=== PATIENT | female | born 1970 | race Caucasian/White ===

== ENCOUNTER → 2017-09-17 10:10 | Outpatient (CLI) | payer OTHER, SELFPAY ==
[2017-09-17 10:35] LABS: Adenovirus F 40/41, stool Not Detected (NotDetected); Astrovirus Not Detected (NotDetected); Campylobacter Not Detected (NotDetected); Clostridium Difficile A/B, PCR Not Detected (NotDetected); Cryptosporidium Not Detected (NotDetected); Cyclospora Cayetanesis Not Detected (NotDetected); Entamoeba histolytica Not Detected (NotDetected); Enteroaggregative E coli Not Detected (NotDetected); Enteropathogenic E coli Not Detected (NotDetected); Enterotoxigenic E coli Not Detected (NotDetected); Giardia lamblia Not Detected (NotDetected); Norovirus Not Detected (NotDetected); Plesimonas Shigalloides, PCR Not Detected (NotDetected); Rotavirus A Not Detected (NotDetected); Salmonella, PCR Not Detected (NotDetected); Sapovirus Not Detected (NotDetected); Shiga-like toxin E coli Not Detected (NotDetected); Shigella Enterovasive E coli Not Detected (NotDetected); Vibrio Cholerae Not Detected (NotDetected); Vibrio, PCR Not Detected (NotDetected); Yersinia Entercolitica, PCR Not Detected (NotDetected)
[2017-09-17 13:24] LABS: Basophils # 0.1 K/mm3 (0-0.2); Basophils % 0.8 % (0.1-2.0); Eosinophils # 0.5 K/mm3 (0.0-0.4); Eosinophils % 6.5 % (0.1-12.0); Hematocrit 40.9 % (37.0-47.0); Hemoglobin 13.3 g/dL (12.2-16.2); Lymphocytes # 2.3 K/mm3 (0.7-4.5); Lymphocytes % 32.9 K/mm3 (10-50); Mean Corpuscular HGB Conc 32.5 g/dL (31.8-35.4); Mean Corpuscular Hemoglobin 31.2 pg (27.0-31.2); Mean Corpuscular Volume 96.1 fl (81-99); Mean Platelet Volume 7.5 fl (7.4-10.4); Monocytes # 0.5 K/mm3 (0.1-1.0); Monocytes % 6.8 % (1.7-9.3); Neutrophils # 3.7 K/mm3 (1.8-7.8); Platelet Count 374 K/mm3 (142-424); Red Blood Count 4.26 M/mm3 (4.20-5.40); Red Cell Distribution Width 12.6 % (11.5-17.5)
[2017-09-17 13:47] LABS: Alanine Aminotransferase 122 U/L (12-78); Albumin Level 3.8 gm/dL (3.4-5.0); Alkaline Phosphatase 114 U/L (46-116); Anion Gap 11.5 mEq/L (5-15); Aspartate Amino Transferase 82 U/L (15-37); Bilirubin,Total 0.2 mg/dL (0.2-1.0); Blood Urea Nitrogen 11 mg/dL (7-18); Carbon Dioxide 29 mmol/L (21.0-32.0); Chloride 102 mmol/L (98-107); Chol/HDL Ratio 5.3 (1-3.5); Cholesterol 255 mg/dL (140-200); Creatinine,Serum 0.79 mg/dL (0.55-1.02); Estimated Glomerular Filt Rate > 60 ml/min (>60); GFR (African American) > 60 ML/MIN (>60); Globulin 3.7 gm/dl (1.3-3.2); Glucose 107 mg/dL (74-106); HDL Cholesterol 48 mg/dL (29-89); LDL Cholesterol 143 mg/dL (0-130); Potassium 4.5 mmoL/L (3.5-5.1); Sodium 138 mmol/L (136-145); Thyroid Stimulating Hormone 1.89 uIU/ml (0.358-3.740); Total Protein,Serum 7.5 gm/dL (6.4-8.2); Triglycerides 320 mg/dL (30-200); VLDL Cholesterol 64 mg/dL (0-40)
== END ==
PROVIDERS: PCP Nurse Practitioner Family; Visit Provider Nurse Practitioner Family
DX: R19.7 Diarrhea, unspecified (principal); Z13.89 Encounter for screening for other disorder; Z13.220 Encounter for screening for lipoid disorders
CPT/HCPCS: 36415; 80053; 80061; 84443; 85025; 87507

== ENCOUNTER 2018-04-25 10:30 | Outpatient (RCR) | payer OTHER, SELFPAY | END 2018-05-17 11:24 | disposition home or self-care (01) | LOC: PT 10:30 | PROVIDERS: PCP Nurse Practitioner Family; Visit Provider Nurse Practitioner Family | DX: M54.42 Lumbago with sciatica, left side (principal); M54.41 Lumbago with sciatica, right side; M54.2 Cervicalgia | CPT/HCPCS: 97010; 97014; 97033; 97035; 97110; 97140; 97163; G0283 ==

== ENCOUNTER 2021-09-06 15:19 | Emergency (ER) | payer MEDICAID, SELFPAY ==
[2021-09-06 16:05] VITALS: BP 135/81; PULSE 71; RESP 18; TEMP 37.1; O2SAT 97; BMI 30.9
[2021-09-06 16:16] LABS: UTC Influenza A Antigen Negative (Negative)
[2021-09-06 16:17] LABS: UTC Influenza B Antigen Negative (Negative)
--- NOTE | 2021-09-06 16:41 | HMH.EDUTC ---
[facility] [place] [facility] [place] Clinical Impression: Viral syndrome, Exposure to COVID-19 virus Asthma exacerbation Qualifiers: Asthma severity: unspecified severity Asthma persistence: unspecified Qualified Code(s): J45.901 - Unspecified asthma with (acute) exacerbation Disposition: Home, Self-Care Condition on Discharge: Good Instructions: DI for Asthma -- Adult, DI for COVID-19 (Suspected or Confirmed ), Preventing the Spread of Coronavirus Discharge Instructions Additional Instructions: Drink plenty of fluids. Take tylenol or ibuprofen for pain or fever. Take the medications as directed. Follow up with your regular doctor. GO TO THE ER FOR ANY WORSENING SYMPTOMS Quarantine until you know the results of your covid-19 test. If it is positive, the health department should call you and give you further instructions about your length of Quarantine and other things. Notify your school or workplace of your results and follow their instructions regarding return to work/school. Prescriptions: Promethazine/Dextromethorphan [Promethazine-Dm Syrup] 5 ml PO Q6HP PRN #240 ml PRN Reason: Cough Transmission Status: Received by [facility] methylPREDNISolone [Medrol] 4 mg PO DIRECTED 6 Days #21 packet Transmission Status: Received by [facility] guaiFENesin [Mucinex 600mg tablet] 1 - 2 tab PO BIDP PRN #30 tab PRN Reason: Congestion Transmission Status: Received by [facility] Azithromycin [Z-Lisandro 250mg Tab*] 250 mg PO UD DOSE PK #6 tab Transmission Status: Received by [facility] Referrals: Lou Delarosa APRN [Primary Care Provider] - Forms: Work/School Release Time of Disposition: 17:01 Medical Decision Making - Medical Records Medical records reviewed: No: I reviewed the patient's medical records. - Efe Inquiry Pt receiving controlled substance: No Vital Signs: 09/06/21 16:05 09/06/21 17:10 Temperature 98.7 F 98.7 F Temperature Source Oral Pulse Rate 71 Pulse Rate [Left] 71 Respiratory Rate 18 18 Blood Pressure 135/81 Blood Pressure [Right Arm] 135/81 Blood Pressure Mean [Right Arm] 99 02 Sat by Pulse Oximetry 97 - Lab Data Lab results reviewed: Yes: I reviewed the patient's lab results. Lab Results 09/06/21 16:07: Influenza Type A Ag Negative, Influenza Type B Ag Negative 09/06/21 16:49: Strep Scn Rapid Clinic Negative Orders (Tests/Meds): ORDERS Category Date Time Status Covid-19 Nasal PCR ([facility]) Routine Lab 09/06/21 16:35 Received Strep Screen Confirmation Stat Micro 09/06/21 16:49 Received [facility] [place] [place] HPI - General Stated complaint: weakness, body aches, chills, headache abd pain Time Seen by Provider: 09/06/21 16:41 Mode of Arrival: Ambulatory Source of Information: Patient Limitations: No Limitations Description of Symptoms (Recalled from Triage Doc. by RN): pt c/o a MADSEN, myalgia, chills and nausea. HEENT Symptoms (Recalled from RN notes): Yes (MADSEN) Resp Symptoms (Recalled from RN notes): No Skin Symptoms (Recalled from RN notes): No MS Symptoms (Recalled from RN notes): No Functional Status (Recalled from RN notes): wnl - History of Present Illness Provider Complaint: She states that for the past 3 days she has had a cough, chest congestion, body aches and chills. She has felt bad also. She has been fully vaccinated agains covid-19 and she had covid-19 4 months ago. She has a history of asthma. - Related Data Previous Rx's Medication Instructions Recorded Azithromycin [Z-Lisandro 250mg Tab*] 250 mg PO UD DOSE PK #6 tab 09/06/21 Promethazine/Dextromethorphan 5 ml PO Q6HP PRN #240 ml 09/06/21 [Promethazine-Dm Syrup] guaiFENesin [Mucinex 600mg tablet] 1 - 2 tab PO BIDP PRN #30 tab 09/06/21 methylPREDNISolone [Medrol] 4 mg PO DIRECTED 6 Days #21 09/06/21 packet Allergies Allergy/AdvReac Type Severity Reaction Status Date / Time Penicillins Allergy Verified 09/06/21 16:09 - Worker's Comp Is this
[2021-09-06 17:00] LABS: UTC Strep Screen (Rapid) Negative (Negative)
[2021-09-06 17:10] VITALS: BP 135/81; PULSE 71; RESP 18; TEMP 37.1
== END 2021-09-06 17:10 | disposition home or self-care (01) ==
PROVIDERS: Emergency Provider Nurse Practitioner Family; PCP Nurse Practitioner Family
DX: B34.9 Viral infection, unspecified (principal); J45.901 Unspecified asthma with (acute) exacerbation; Z20.822 Contact with and (suspected) exposure to COVID-19
CPT/HCPCS: 87804; 87880; 99203; C9803; G0463; U0003; U0005

== ENCOUNTER 2025-07-15 09:35 | Outpatient (CLI) | payer BC, SELFPAY ==
[2025-07-15 17:50] LABS: Hematocrit 44.7 % (37.0-47.0); Hemoglobin 14.7 g/dL (12.2-16.2); Immature Granulocytes % 0.2 %; Mean Corpuscular HGB Conc 32.9 g/dL (31.8-35.4); Mean Corpuscular Hemoglobin 31.5 pg (27.0-31.2); Mean Corpuscular Volume 95.7 fl (81-99); Nucleated Red Blood Cells % 0 %; Platelet Count 262 K/mm3 (142-424); Red Blood Count 4.67 M/mm3 (4.20-5.40); Red Cell Distribution Width-SD 45.2 fL; White Blood Count 6.4 K/mm3 (4.8-10.8)
[2025-07-15 18:48] LABS: Albumin Level 5.4 g/dl (3.5-5.0); Chloride 98 mmol/L (98-107)
[2025-07-15 18:49] LABS: Potassium 4.7 mmoL/L (3.5-5.1); Sodium 137 mmol/L (136-145)
[2025-07-15 18:51] LABS: Alanine Aminotransferase 26 U/L (12-78); Anion Gap 18.7 mEq/L (5-15); Aspartate Amino Transferase 40 U/L (14-36); Blood Urea Nitrogen 18 mg/dl (7-17); Carbon Dioxide 25 mmol/L (22.0-30.0); Creatinine,Serum 0.80 mg/dl (0.52-1.04); Estimated Glomerular Filt Rate 74 ml/min (>60); GFR (African American) 89 ML/MIN (>60)
[2025-07-15 18:52] LABS: Albumin/Globulin Ratio 1.9 (1.1-1.8); Alkaline Phosphatase 135 U/L (38-126); Bilirubin,Total 0.9 mg/dl (0.2-1.3); Calcium 9.4 mg/dl (8.4-10.2); Cholesterol 138 mg/dl (140-200); Globulin 2.8 g/dL (1.3-3.2); Glucose 105 mg/dl (74-100); HDL Cholesterol 67 mg/dl (40-60); Total Protein,Serum 8.2 g/dl (6.3-8.2); Triglycerides 95 mg/dl (30-150)
[2025-07-15 19:23] LABS: Thyroid Stimulating Hormone 1.00 uIU/mL (0.465-4.68)
[2025-07-15 19:28] LABS: Hemoglobin A1C 7.6 % (4.0-6.0)
[2025-07-15 19:42] LABS: Hepatitis C Ab Qual. W/ RFX NEGATIVE (Negative)
[2025-07-17 06:11] LABS: Hepatitis B Surface Antigen Negative (Negative)
--- OUTSIDE RECORDS SUMMARY | 2025-07-17 09:40 | XMS_ITS | Data Portability ---
Author Organization [place] - [facility] & DEBORAH Mark ADMIN Address [address] [place] [address] Care Team Providers Care Core Microarchitect Name Role Phone [facility] Primary Care Provider DRU CHILEL Referring Provider Assessment No assessment recorded. Plan of Treatment Reminders Order Date Submit Date Provider Last Modified By Organization Details Last Modified Time Details Appointments None recorded. Lab None recorded. Referral None recorded. Procedures None recorded. Surgeries None recorded. Imaging None recorded. Medication Orders cefuroxime axetil 500 mg tablet 2024 025 [facility], [address] [place], [address], 5 16:10:01 Patient TargetsNo targets recorded. Patient Instructions Encounter Date Encounter Id Patient Instructions Last Modified By Organization Details Last Modified Time 09/24/2024 [id number] Patient has not been treated with antimicrobial therapy other than a Z-Lisandro on 1 occasion In the last 6 months. I would like to do a trial of cefuroxime for 21 days to see if this might improve her symptoms. We also discussed using a Neti pot twice daily and Vaseline to the nasal vestibule for her excessive nasal dryness. I will see her back in 1 month and she will certainly call with any concerns prior. [email or web address] Not available 09/24/2024 16:10:23 Reason for Referral None Reported. Procedures Surgical History Date Name Laterality Status Provider Name and Address Organization Details Recorded Time 09/24/19 25 Nasal Endoscopy completed Ines Martinez MD [address], [place], [address], IRINA CABRERA [facility] [place] 09/24/2024 15:59:21 09/10/18 86 Abdominal Surgery completed Cecilia CABRERA [facility] [place] 09/24/2024 14:52:03 Hysterectomy completed Cecilia CABRERA [facility] [place] 09/23/2024 09:04:24 Tonsillectomy completed Cecilia CABRERA [facility] [place] 09/23/2024 09:04:47 Imaging Results None recorded. Procedure Notes None recorded. Medical Equipment None Reported. Allergies Allergen ID Allergen Name Allergen Category Reaction Reaction Severity Criticality Documentation Date Start Date Code Code System Note Provider Name and Address Organization Details Recorded Time [id number] penicilli n V Not available hives Not available high 09/23/2024 7984 RxNorm Cecilia Escudero [facility], [facility] [place] 08:59:56 Medications Name Sig Start Date Stop Date Status Note LastModified by Organization Details LastModified Time celecoxib 200 mg capsule TAKE 1 CAPSULE BY MOUTH ONCE DAILY UNTIL GONE. 09/24 completed Not Available Not Available Not Available paroxetine 10 mg tablet TAKE 1 TABLET BY MOUTH ONCE DAILY. 09/24 completed Not Available Not Available Not Available cetirizine 10 mg tablet TAKE 1 TABLET BY MOUTH EACH MORNING. 09/24 completed Not Available Not Available Not Available azithromycin 250 mg tablet TAKE 2 TABLETS BY MOUTH THE FIRST DAYS DOSE, THEN TAKE 1 TABLET DAILY FOR 4 MORE DAYS. 09/24 completed Not Available Not Available Not Available prednisone 20 mg tablet TAKE ONE TABLET BY MOUTH THREE TIMES DAILY FOR 5 DAYS active Not Available Not Available No t Available fexofenadine 180 mg tablet TAKE 1 TABLET BY MOUTH DAILY. 09/24 completed Not Available Not Available Not Available omeprazole 20 mg capsule,magen yed release TAKE 1 CAPSULE BY MOUTH DAILY. active Not Available Not Available No t Available montelukast 10 mg tablet Take 1 tablet every day by oral route. active Not Available Not Available No t Available azelastine 137 mcg (0.1 %) nasal spray INSTILL 1-2 SPRAYS INTO EACH NOSTRIL TWICE DAILY NEEDED active Not Available Not Available No t Available cefuroxime axetil 500 mg tablet TAKE 1 TABLET BY MOUTH EVERY 12 HOURS active Not Available Not Available No t Available albuterol sulfate HFA 90 mcg/actuatio n aerosol inhaler INHALE 1-2 PUFFS EVERY 4 HOURS NEEDED active Not Available Not Available No t Available fluticasone propionate 50 mcg/actuatio n nasal spray,suspen ciarra INSTILL 2 SPRAYS IN EACH NOSTRIL ONCE DAILY active Not Available Not Available No t Available ezetimibe 10 mg tablet TAKE 1 TABLET BY MOUTH DAILY. 09/24 completed Not Available Not Available Not Available nitrofuranto in monohydrate/ macrocrystal s 100 mg capsule TAKE 1 CAPSULE BY MOUTH EVERY 12 HOURS FOR 7 DAYS. 09/24 completed Not Available Not Available Not Available Xyzal 5 mg tablet Take 1 tablet every day by oral route. active Not Available Not Available No t Available Mucinex Cold,Flu,Sor e Throat active Not Available Not Available Not Available naproxen 220 mg-diphenhyd ramine 25 mg tablet Take by oral route. active Not Available Not Available No t Available Breo Ellipta 200 mcg-25 mcg/dose powder for inhalation INHALE 1 PUFF BY MOUTH DAILY 09/24 completed Not Available Not Available Not Available Trelegy Ellipta 200 mcg-62.5 mcg-25 mcg powder for inhalation INHALE 1 PUFF BY MOUTH ONCE DAILY active Not Available Not Available No t Available Vitals Date Recorded Body weight Body temperature Body mass index (BMI) Body height Provider Name and Address Organization Details Last Updated DateTime 09/24/2024 95109.14 g 97.3 [degF] 32.8 kg/m2 162.56 cm [facility] [place] 09/24/2024 14:51:50 Social History None recorded. Functional Status None recorded. Mental Status None recorded. Family History Relationship Description Onset Age of this Age Resolved Age Notes LastModified by Organization Details LastModified Time Mother Hypertensive disorder [email or web address] Not available 2024 09:05:05 Mother Hypercholest erolemia [email or web address] Not available 2024 09:05:55 Brother Hypertensive disorder [email or web address] Not available 2024 09:05:36 Father Hypercholest erolemia [email or web address] Not available 2024 09:06:09 Father Hypertensive disorder pt. added direct ly (09/23) [email or web address] Not available 09/23/2024 16:01:15 Medical History Condition Response Allergies/Hayfever Y Vision or Eye Problems Y Reflux/GERD Y High Cholesterol Y Acid Reflux (GERD) Y Eczema Y Headaches Y Hypertension N Asthma Y Acne Y Gynecological HistoryNo gynecological history recorded. Obstetrics History GPAL:G 0 P 0 0 0 0 Past Encounters Encounter ID Performer Location Encounter Start Date Encounter Closed Date Diagnosis/Indication Diagnosis SNOMED-CT Code Diagnosis ICD10 Code Diagnosis IMO Codes Diagnosis Note [id number] Ines Martinez MD [facility] [facility], [facility] [place] [address] 09/24/2024 14:44:59 09/24/2024 15:31:17 Allergic rhinitis 42981901 J30.9 Advised that she discuss with her allergy provider possible re-testing as she has been on immunother apy for close to 5 years stephanie hayward Chronic sinusitis 259638 00 J32.9 Deviated nasal septum 12 8093716 J34.2 Nasal congestion 5747616 0 R09.81 Health Concerns Section Related Observation LastModified by Organization Detai ls LastModified Time None Recorded Concern Status LastModified by Organization Details LastModified Time None Recorded Advance Directives Directive None Recorded Payers Insurance Date Sequence Insurance Name Policy Number Policy Mckay Covered Member ID Mckay Member ID Guarantor Name 08/27/2024 1 [facility] (MEDICAID REPLACEMENT - HMO) Tiarra Nguyen [id number] Tiarra Nguyen 09/21/2024 1 [facility] (PPO) [id number] Tiarra Nguyen [id number] Tiarra Nguyen Notes Date Note Type Note Provider Name and Address Organization Details Recorded Time 09/24/2024 text/html 09/24/24-Patient is here evaluation of facial pain, pressure and intermittently a productive cough. She reports not breathing as well through the left nostril and sometime with some left sided ear pain. Patient has seen [facility] in [place] since about 2018 and is currently on allergy shots once monthly. She does not feel she has had much improvement on them. She has been on one round of Azithromycin through her chief clinical officer. Patient also takes montelukast, mucinex with Azelastine and flonase nasal spray prescribed through her chief clinical officer. She lived in [place] and se ENT in 2008 and was told she had nasal polyps. She has never had sinus or nasal surgery. She developed hives as an adult when taking Amoxicillin. Ines Martinez MD [address], [place], [address], [facility] [place] [facility] [place] 09/24/2024 16:10:51 OBGyn Episode No OBEpisode recorded.
== END 2025-07-15 23:59 ==
LOC: LAB.DROPOF 07-17 09:35
PROVIDERS: PCP Family Medicine; Visit Provider Family Medicine
DX: E11.9 Type 2 diabetes mellitus without complications (principal); Z11.4 Encounter for screening for human immunodeficiency virus [HIV]; Z11.59 Encounter for screening for other viral diseases
CPT/HCPCS: 80053; 80061; 83036; 84443; 85025; 86803; 87340; 87389